=== PATIENT | female | born 1955 | race Caucasian/White ===

== ENCOUNTER → 2016-09-25 | Outpatient (CLI) | payer OTHER ==
--- NOTE | 2016-09-26 09:13 | DEXA ---
AP SPINE L1 - L4 1.006 -1.5 -0.2 LT FEMUR TOTAL 0.762 -2.0 -0.9 RT FEMUR TOTAL 0.806 -1.6 -0.6 TOTAL BODY TOTAL OTHER DUAL FEMUR FRAX* ASSESSMENT Risk factors: History of adult fracture. 10 year probability of fracture Major osteoporotic fracture 15.4 % Hip fracture 2.1 % COMMENTS: There is low bone density of the spine and hips. The decreased density of the spine does represent a significant change. The decreased density of the left hip does represent a significant change. The decreased density of the right hip does represent a significant change. The density of the spine is decreased 7.5% since the initial exam on 05/12/2008. The spine density has decreased 3.4% since the most recent exam on 09/23/2012. The density of the left hip has decreased 8.4% since the initial exam on 2008. The density of the left hip has decreased 2.4% since the most recent exam on . The density of the right hip has decreased 8.0% since the initial exam on 2008. The density of the right hip has decreased 4.0% since the most recent exam on . FOLLOW-UP: Recommendation for the next bone density exam: 2 years. VIKA
== END ==
LOC: M WHC 11:01
PROVIDERS: ATTEND Nurse Practitioner Women's Health
DX: M85.80 Other specified disorders of bone density and structure, unspecified site (principal); Z78.0 Asymptomatic menopausal state

== ENCOUNTER → 2017-04-16 | Outpatient (CLI) | payer OTHER | LOC: M WHC 13:08 | DX: Z12.31 Encounter for screening mammogram for malignant neoplasm of breast (principal) ==

== ENCOUNTER → 2017-04-16 | Outpatient (REF) | payer OTHER | LOC: M SFHCWAGY 13:21 | DX: Z12.4 Encounter for screening for malignant neoplasm of cervix (principal) | CPT/HCPCS: G0123 ==

== ENCOUNTER → 2018-06-05 | Outpatient (REF) | payer OTHER ==
[2018-06-11 14:26] LABS: HPV HYBRID CAPTURE II Negative (Negative)
== END ==
LOC: M SFHCWAGY 14:56
PROVIDERS: ATTEND Nurse Practitioner Women's Health
DX: Z12.4 Encounter for screening for malignant neoplasm of cervix (principal)

== ENCOUNTER 2018-09-15 07:48 | Day surgery (SDC) | payer OTHER ==
[~2018-09-15] VITALS: Ht 170.2 cm; Wt 59.5 kg
[~2018-09-15 07:48] MED LIST: ADVI100T PO; CALC1TAB30 PO; CVS250TA3 PO; CYAN100050 PO; GNP1000T11 PO; KRIL300C2 PO; NS 1,000 ML IV ONE; ONE50TAB3 PO
[2018-09-15] MEDS ORDERED: PROPOFOL 200 MG/20 ML VIAL As Ordered ONE (09:15)
[2018-09-15] MEDS ORDERED: LIDOCAINE 2% INJ 100 MG/5 ML SDV (FOR ANES.) As Ordered ONE (09:15)
--- NOTE | 2018-09-15 09:39 | ROOR ---
Patient Name: Akanksha Loera Procedure Date: 09/15/2018 9:18 AM Date of : 1955 Age: 62 Room: [facility] Gender: Female Note Status: Finalized Procedure: Total Colonoscopy to Cecum Indications: Colon cancer screening in patient at increased risk: Family history of 1st-degree relative with colon polyps, Last colonoscopy: 2013 Providers: Ariel Zamora MD Referring MD: Diana Riggins MD Requesting Provider: Medicines: Monitored Anesthesia Care Complications: No immediate complications. Procedure: Pre-Anesthesia Assessment: - The heart rate, respiratory rate, oxygen saturations, blood pressure, adequacy of pulmonary ventilation, and response to care were monitored throughout the procedure. The Colonoscope was introduced through the anus and advanced to the cecum, identified by appendiceal orifice and ileocecal valve. The colonoscopy was performed without difficulty. The patient tolerated the procedure well. The quality of the bowel preparation was excellent. Findings: The perianal and digital rectal examinations were normal. Non-bleeding internal hemorrhoids were found during retroflexion. The hemorrhoids were small and Grade I (internal hemorrhoids that do not prolapse). No other significant abnormalities were identified in a careful examination of the remainder of the colon. The exam was otherwise without abnormality on direct and retroflexion views. Impression: - Non-bleeding internal hemorrhoids. - The examination was otherwise normal on direct and retroflexion views. - No specimens collected. - The exam was otherwise normal to the cecum. Recommendation: - Patient has a contact number available for emergencies. The signs and symptoms of potential delayed complications were discussed with the patient. Return to normal activities tomorrow. Written discharge instructions were provided to the patient. - High fiber diet. - Discharge patient to home. - Continue present medications. - Repeat colonoscopy in 5 years for screening purposes. - Return to referring physician. - The findings and recommendations were discussed with the patient's family. Ariel Zamora MD Ariel Zamora MD 09/15/2018 9:39:14 AM Electronically signed by Ariel Zamora MD Number of Addenda: 0 Note Initiated On: 09/15/2018 9:18 AM Estimated Blood Loss: Estimated blood loss: none.
[2018-09-15 10:00] VITALS: BP 120/77
== END 2018-09-15 10:08 | disposition home or self-care (01) ==
LOC: M OPP 07:48
PROVIDERS: ATTEND Internal Medicine Gastroenterology
DX: K64.0 First degree hemorrhoids (principal); Z83.71 Family history of colonic polyps; Z12.11 Encounter for screening for malignant neoplasm of colon; Z88.0 Allergy status to penicillin; Z91.040 Latex allergy status

== ENCOUNTER → 2018-11-25 | Outpatient (CLI) | payer OTHER ==
[~2018-11-25] MED LIST changes: -NS 1,000 ML IV ONE
--- NOTE | 2018-11-25 16:59 | REPMRS ---
Patient History The patient states she had a clinical breast exam in 06/2018. Patient is postmenopausal. Family history of colorectal cancer at age 50 or over in maternal grandmother, breast cancer at age 50 or over in paternal aunt. No Hormone Replacement Therapy 3D TOMOSYNTHESIS WAS PERFORMED. [facility] lifetime risk for breast cancer is 11.9%. Digital Woman Screen Mammo: November 25, 2018 - Exam #: [id number] Bilateral CC and MLO view(s) were taken. Technologist: Raven Blanchard Technologist Prior study comparison: April 16, 2017, digital woman screen mammo performed at [facility]. December 27, 2015, digital woman screen mammo performed at [facility]. FINDINGS: There are scattered fibroglandular densities. There has been no change in the appearance of the mammogram from the prior studies. There is a mild amount of residual fibroglandular tissue which is fairly symmetric. There is no interval development of dominant mass, architectural distortion, or clustered microcalcification suggestive of malignancy. Assessment: BI-RADS/ACR category 1 mammogram. Negative Mammogram. Recommendation Routine screening mammogram in 1 year (for women over age 40). This mammogram was interpreted with the aid of an FDA-approved computer-aided dectection system. Electronically Signed By: Carl Pfeiffer MD 11/25/18 [id number]
== END ==
LOC: M WHC 16:10
PROVIDERS: ATTEND Nurse Practitioner Women's Health
DX: Z12.31 Encounter for screening mammogram for malignant neoplasm of breast (principal); Z80.3 Family history of malignant neoplasm of breast; Z80.0 Family history of malignant neoplasm of digestive organs

== ENCOUNTER → 2019-11-27 | Outpatient (REF) | payer OTHER ==
[~2019-11-27] MED LIST changes: -CVS250TA3 PO; +MAGN250T22 PO
== END ==
LOC: M SFHCWAGY 13:21
PROVIDERS: ATTEND Nurse Practitioner Women's Health
DX: Z12.4 Encounter for screening for malignant neoplasm of cervix (principal)

== ENCOUNTER → 2019-11-27 | Outpatient (CLI) | payer OTHER ==
--- NOTE | 2019-11-27 10:34 | REPMRS ---
Patient History The patient states she had a clinical breast exam in 2019. Family history of colorectal cancer at age 50 or over in maternal grandmother, breast cancer at age 50 or over in paternal aunt. No Hormone Replacement Therapy 3D TOMOSYNTHESIS WAS PERFORMED. The [facility] lifetime risk for breast cancer is 11.4%. Tamara de guzman. Digital Woman Screen Mammo: November 27, 2019 - Exam #: [id number] Bilateral CC and MLO view(s) were taken. Technologist: Kaycee Clancy, Technologist Prior study comparison: November 25, 2018, bilateral digital woman screen mammo performed at [facility]. April 16, 2017, digital woman screen mammo performed at [facility]. FINDINGS: There are scattered fibroglandular densities. There has been no change in the appearance of the mammogram from the prior studies. There is a mild amount of residual fibroglandular tissue which is fairly symmetric. There is no interval development of dominant mass, architectural distortion, or clustered microcalcification suggestive of malignancy. Assessment: BI-RADS/ACR category 1 mammogram. Negative Mammogram. Recommendation Routine screening mammogram in 1 year (for women over age 40). This mammogram was interpreted with the aid of an FDA-approved computer-aided dectection system. Electronically Signed By: Carl Pfeiffer MD 11/27/19 [id number]
== END ==
LOC: M WHC 09:17
PROVIDERS: ATTEND Nurse Practitioner Women's Health
DX: Z12.31 Encounter for screening mammogram for malignant neoplasm of breast (principal); Z80.0 Family history of malignant neoplasm of digestive organs; Z80.3 Family history of malignant neoplasm of breast

== ENCOUNTER → 2020-11-14 | Outpatient (CLI) | payer MEDICARE, OTHER ==
[~2020-11-14] MED LIST changes: +CLAR10CA3 PO; +FLON1SPR NARES; +OMEP-221
== END ==
LOC: M LABSMTC 09:50
PROVIDERS: ATTEND Anesthesiology
DX: Z01.812 Encounter for preprocedural laboratory examination (principal)

== ENCOUNTER 2020-11-18 10:31 | Day surgery (SDC) | payer MEDICARE, OTHER ==
[~2020-11-18] VITALS: Ht 170.2 cm; Wt 60.7 kg
[~2020-11-18 10:31] MED LIST changes: +NS 1,000 ML IV ONE; -OMEP-221; +OMEP40CA5
[2020-11-18] MEDS ORDERED: LIDOCAINE 2% 100MG/5ML SDV (FOR ANES.) As Ordered ONE (12:51)
[2020-11-18] MEDS ORDERED: propofoL 200 MG/20 ML VIAL As Ordered ONE (12:51)
[2020-11-18] MEDS ORDERED: fentaNYL 100 MCG/2 ML INJECTION As Ordered ONE (12:51)
[2020-11-18 13:25] VITALS: BP 123/78
== END 2020-11-18 13:30 | disposition home or self-care (01) ==
LOC: M OPP 10:31
PROVIDERS: ATTEND Internal Medicine Gastroenterology
DX: K14.6 Glossodynia (principal); R12 Heartburn; Z88.0 Allergy status to penicillin; Z88.2 Allergy status to sulfonamides; Z91.040 Latex allergy status
CPT/HCPCS: 43239; 88305; J3010

== ENCOUNTER → 2020-11-28 | Outpatient (CLI) | payer MEDICARE, OTHER ==
[~2020-11-28] MED LIST changes: -NS 1,000 ML IV ONE; +OMEP-221; -OMEP40CA5
--- NOTE | 2020-11-28 11:29 | REPMRS ---
Patient History The patient states she had a clinical breast exam 10/2020. Family history of colorectal cancer at age 50 or over in maternal grandmother, breast cancer at age 50 or over in paternal aunt. No Hormone Replacement Therapy Patient states no breast complaints today. Patient has signed MRS History Sheet. Digital Woman Screen Mammo: November 28, 2020 - Exam #: [id number] Bilateral CC and MLO view(s) were taken. Technologist: Bhakti Biswas, Paradichlorobenzene Machine Operator Prior study comparison: November 27, 2019, bilateral digital woman screen mammo performed at [facility]. November 25, 2018, bilateral digital woman screen mammo performed at [facility]. FINDINGS: There are scattered fibroglandular densities. Screening. Digital screening (2D) mammography was performed bilaterally in the CC and MLO projections. Additionally, breast tomosynthesis (3D mammography) was performed bilaterally in the CC and MLO projections. Todays exam was compared to the prior exam/exams. By history, the patient has no complaints of a palpable breast abnormality or other significant breast complaints. The breasts are unchanged in size and shape. There are no yudi-soft tissue densities or spiculated masses. There is no internal architectural distortion. Once again, stable benign appearing calcifications are seen.There are no suspicious yudi-calcific clusters. Skin thickening or nipple retraction is not present. IMPRESSION: BI-RADS Category 2- Benign Findings. There is no evidence of malignant alteration of the breasts. Followup examination recommended in one year. The Volpara volumetric breast density category is B, there are scattered areas of fibroglandular densities. This mammogram was read with the assistance [facility],an FDA approved computer aided detection system for mammography. The lifetime Tyrer-Cuzick score is 10.9 % Negative x-ray reports should not delay surgical consultation if a dominant or clinically suspicious mass is present. Not all breast cancers can be identified by mammography. Therefore, we recommend that you continue to perform regular breast self-examination and physical examination and then promptly contact your physician of any concerns or changes. Adenosis and dense breasts may obscure an underlying neoplasm. Assessment: BI-RADS/ACR category 2 mammogram. Benign Findings. Recommendation Routine screening mammogram of both breasts in 1 year. Electronically Signed By: Eduardo Cao DO 11/28/20 112
== END ==
LOC: M WHC 10:36
PROVIDERS: ATTEND Nurse Practitioner Women's Health
DX: Z12.31 Encounter for screening mammogram for malignant neoplasm of breast (principal)